=== PATIENT | female | born 2000 | race Caucasian/White ===

== ENCOUNTER 2023-06-19 10:06 | Outpatient (CLI) | payer OTHER, SELFPAY ==
[2023-06-19 10:46] LABS: Hematocrit 37.8 % (37.0-47.0); Hemoglobin 12.6 g/dL (12.0-15.0); Mean Corpuscular HGB Conc 33.3 g/dl (32-36); Mean Corpuscular Hemoglobin 30.5 pg (26-34); Mean Corpuscular Volume 91.5 fl (80-100); Mean Platelet Volume 9.4 fl (7.4-10.4); Platelet Count Result 220 k/mm3 (150-375); Red Blood Count 4.13 M/mm3 (4.2-5.4); White Blood Count 7.9 K/mm3 (4.5-10.0)
[2023-06-19 11:16] LABS: Alanine Aminotransferase 23 U/L (6-35); Albumin Level 4.6 g/dL (3.5-5.1); Alkaline Phosphatase 56 U/L (38-126); Anion Gap 12 mmol/L (8-16); Aspartate Amino Transferase 24 U/L (14-36); Bilirubin,Total 0.4 mg/dL (0.2-1.3); Blood Urea Nitrogen 9 mg/dL (7-17); CRP 0.9 mg/dL (<1.0); Calcium 9.6 mg/dL (8.4-10.2); Carbon Dioxide 23 mmol/L (22-30); Chloride 103 mmol/L (98-107); Estimated Glomerular Filt Rate > 60; Glucose 85 mg/dL (65-110); Potassium 4.3 mmol/L (3.4-5.0); Sodium 138 mmol/L (137-145)
[2023-06-19 11:47] LABS: Erythrocyte Sedimentation Rate 25 mm/hr (0-20)
[2023-06-19 11:54] LABS: Thyroid Stimulating Hormone Reflex 0.695 uIU/mL (0.465-4.68)
[2023-06-24 11:35] LABS: Immunoglobulin A 92 mg/dL (47-310); TTG IGA AB <1.0 U/mL (<15.0)
== END 2023-06-19 10:07 | disposition home or self-care (01) ==
LOC: ANHLAB 10:08
PROVIDERS: PCP Internal Medicine; Visit Provider Nurse Practitioner
DX: K58.0 Irritable bowel syndrome with diarrhea (principal)
CPT/HCPCS: 36415; 80053; 82784; 84443; 85027; 85652; 86140; 86364

== ENCOUNTER 2023-06-20 09:15 | Outpatient (CLI) | payer OTHER, SELFPAY ==
[2023-06-29 01:21] LABS: Calprotectin, Stool <5 mcg/g; Pancreatic Elastase, Stool >500 mcg/g
== END 2023-06-20 09:16 | disposition home or self-care (01) ==
PROVIDERS: PCP Internal Medicine; Visit Provider Nurse Practitioner
DX: K58.0 Irritable bowel syndrome with diarrhea (principal)
CPT/HCPCS: 82653; 83993

== ENCOUNTER 2025-02-03 11:11 | Outpatient (CLI) | payer OTHER, SELFPAY ==
--- OUTSIDE RECORDS SUMMARY | 2025-02-03 11:16 | XMS_ITS | Clinical Summary ---
Author Organization [facility] assistant Address [address] [place] [address] Care Team Providers Care Purchasing Engineer Name Role Phone Unavailable Primary Care Provider Unavailabl e Source Comments [facility] assistant,non-owned Affiliates and Associated Physician Practices is amultiple site organization consisting of ambulatory clinics and hospital sitesin [place], [place], [place] and [place]. This disclosure is being madepursuant to the Care Everywhere program and may not contain all information available regarding this patient. Last updated 18.[facility] assistant Allergies Active Allergy Reactions Criticality Noted Date Comments Augmentin Diarrhea 08/04/2018 Medications * Be aware that medications may not be up to date on this document. Alwaysverify current medications with the patient. No known medications Social History Tobacco Use Types Packs/Day Years Used Date Smoking Tobacco: Never Smokeless Tobacco: Never Comments No Sex and Gender Information Value Date Recorded Sex Assigned at Not on file Legal Sex Female 10:59 AM RN [facility] Gender Identity Not on file Sexual Orientation Not on file Last Filed Vital Signs Vital Sign Reading Time Taken Comments Blood Pressure 104/80 08/04/2018 11:42 AM RN [facility] Pulse 91 08/04/2018 11:42 AM RN [facility] Temperature 36.9 C (98.4 F) 08/04/2018 11:42 AM RN [facility] Respiratory Rate - - Oxygen Saturation 99% 08/04/2018 11:42 AM RN [facility] Inhaled Oxygen Concentration - - Weight 54 kg (119 lb) 08/04/2018 11:42 AM RN [facility] Height 149.9 cm (4' 11) 08/04/2018 11:42 AM RN [facility] Body Mass Index 24.04 08/04/2018 11:42 AM RN [facility] Plan of Treatment Health Maintenance Due Date Last Done Comments HIV SCREENING 2017 HPV VACCINE (1 - 3-dose series) 2017 CHLAMYDIA/GONORRHEA SCREENING 2018 MENINGOCOCCAL (Group B) VACC INE SHARED DECISION-MAKING (1 of 2 - Standard) 2018 HEPATITIS C SCREENING 07/08/2020 DTAP/TDAP/TD VACCINES (1 - Tdap) 2021 HEPATITIS B VACCINE (1 of 3 - 19+ 3-dose series) 2021 COVID-19 VACCINE (1 - 2023-2 5 season) 2024 DEPRESSION SCREENING 08/04/2024 INFLUENZA VACCINE (Season Ended) 2025 ZOSTER VACCINE (1 of 2) 2052 HIB VACCINE Aged Out No longer eligi ble based on patient's age to complete this topic MENINGOCOCCAL GROUPS A/C/Y/W VACCINE Aged Out No longer eligible b ased on patient's age to complete this topic PNEUMOCOCCAL VACCINE Aged Out No long er eligible based on patient's age to complete this topic Insurance [facility]
--- OUTSIDE RECORDS SUMMARY | 2025-02-03 11:16 | XMS_ITS | Data Portability ---
Author Organization [place] [facility], Main Office Address [address] [place] [address] Care Team Providers Care Chemist Internship Name Role Phone ALEKS ESCALANTE Primary Care Provider [phone] Assessment Encounter Date Assessment Date Assessment LastModified by Organization Details LastModified Time 12/05/2022 12/05/2022 Finish clindamycin Continue to follow-up for ADD and anxiety with her psychiatry See me yearly and LEs she gets sick [email or web address] Not available 12/07/2022 16:45:19 Plan of Treatment Reminders Order Date Submit Date Provider Last Modified By Organization Details Last Modified Time Details Appointments None recorded. Lab None recorded. Referral None recorded. Procedures None recorded. Surgeries tonsillecto my (SURG) 2023 024 [email or web address] Not available 14:22:46 Imaging None recorded. Medication Orders None recorded. Patient TargetsNo targets recorded. Patient Instructions Encounter Date Encounter Id Patient Instructions Last Modified By Organization Details Last Modified Time 07/26/2024 [id number] Discussed that she is experiencing bilateral ear pain due to referred pain as the tonsils and ears share nerve pathways. Advised to continue heat as needed. Advised taking 500 to a 1000 mg of Tylenol every 6 hours and or taking ibuprofen 6-800 mg every 4-6 hours for symptom management. [email or web address] Not available 07/26/2024 12:47:39 Reason for Referral None Reported. Results Created Date Observation Date Name Description Value Unit Range Abnormal Flag Note LastModifiedBy Organization Detail LastModifiedTime 07/19/20 24 07/23/2024 PATHO LOGY SERVI CE pathserv SEE COMMEN T See separ ate patho logy repor t. Not Available [facility] (Lab) [address] [place], [address], 07/23/2024 15:29:47 Result Notes None recorded. Problems Name Problem SNOMED Code Status Onset Date Resolution Date Notes Provider Name and Address Organization Details Recorded Time Acute pharyngitis 737417884 Active 2022 Aleks Escalante MD [address] [facility], [address], [address] , [facility] [facility] 16:45:24 Diarrhea 78085454 Active 2022 Bianka Marroquin RN [facility], [facility] 17:27:39 Chronic tonsillitis 61298348 Active 2023 Donnie Barrios MD [address] [facility], [address], [address] , [facility] [facility] 15:44:01 Postoperative pain 339616705 Active 2023 Donnie Barrios MD [address] [facility], [address], [address] , [facility] [facility] 17:11:37 Problem Notes None recorded. Procedures Surgical History Date Name Laterality Status Provider Name and Address Organization Details Recorded Time 07/19/20 24 TONSILLECTOMY (SURG) completed Zee Carlin RN [place] [facility] 07/23/2024 09:02:56 09/18/19 19 [place] Teeth completed Not Available [facility] 023 18:51:20 Imaging Results None recorded. Procedure Notes None recorded. Medical Equipment None Reported. Allergies No known drug allergies Medications Name Sig Start Date Stop Date Status Note LastModified by Organization Details LastModified Time amoxicill in 500 mg capsule 11/26 completed Not Available Not Available Not Available azithromy jass 250 mg tablet 11/28 completed Not Available Not Available Not Available hydrocodo ne 5 mg-acetam inophen 325 mg tablet 11/26 completed Not Available Not Available Not Available tretinoin 0.025 % topical cream 12/05 completed Not Available Not Available Not Available prednison e 20 mg tablet TAKE 2 TABLETS BY MOUTH EVERY DAY FOR 5 DAYS 04/25 completed Not Available Not Available Not Available amoxicill in 875 mg tablet 11/26 completed Not Available Not Available Not Available clindamyc in 1 % topical gel 12/05 completed Not Available Not Available Not Available benzonata te 100 mg capsule 11/28 completed Not Available Not Available Not Available polymyxin B sulfate 10,000 unit-trim ethoprim 1 mg/mL eye drops 04/25 completed Not Available Not Available Not Available amoxicill in 875 mg-potass ium clavulana te 125 mg tablet TAKE 1 TABLET BY MOUTH EVERY 12 HOURS FOR 10 DAYS 04/25 completed Not Available Not Available Not Available Lessina 0.1 mg-20 mcg tablet TAKE 1 TABLET BY MOUTH DAILY 12/05 completed Not Available Not Available Not Available escitalop conrad 20 mg tablet Take 1 tablet every day by oral route. 03/29 completed psych- alan Not Available Not Available Not Available moxifloxa jass 0.5 % eye drops 12/05 completed Not Available Not Available Not Available June FE 08/23 (28) 1 mg-20 mcg (21)/75 mg (7) tablet TAKE 1 TABLET BY MOUTH EVERY DAY 03/29 completed Not Available Not Available Not Available hydrocodo ne 7.5 mg-acetam inophen 325 mg/15 mL oral solution Take 15 mL every 4 hours by oral route. 07/26 completed Not Available Not Available Not Available chlorhexi dine gluconate 0.12 % mouthwash 11/26 completed Not Available Not Available Not Available hyoscyami ne sulfate active Not Available Not Available Not Available NuvaRing active Not Available Not Avai lable Not Available drospiren one 3 mg-ethiny l estradiol 0.02 mg tablet Take 1 tablet every day by oral route. 04/25 completed Not Available Not Available Not Available Xulane 150 mcg-35 mcg/24 hr transderm al patch Apply 1 patch every week by transder mal route. 03/10 completed Not Available Not Available Not Available Qelbree 200 mg capsule,e xtended release Take 1 capsule every day by oral route. 03/29 completed sample from psych- alan Not Available Not Available Not Available Vitals Date Recorded Body height Body mass index (BMI) Body mass index (BMI) [Percentile] Per age and sex Body weight Body temperature Heart rate Oxygen saturation Oxygen saturation in Arterial blood by Pulse oximetry Systolic And Diastolic Provider Name and Address Organization Details Last Updated DateTime 149.86 cm 25.9 kg/m2 82 % 26837.8 2 g 97.6 [degF] 103 /min 97 % 97 % 112/70 mm[Hg] Marissa Strickland RN [facility] 15:44:59 Date Recorded Body mass index (BMI) Body height Body weight Systolic And Diastolic Provider Name and Address Organization Details Last Updated DateTime 12/25/2020 19.7 kg/m2 154.94 cm 71406.61 g 102/70 mm[Hg] Not Available [facility] 10/02/2022 18:51:31 Date Recorded Body height Body mass index (BMI) Body weight Body temperature Provider Name and Address Organization Details Last Updated DateTime 03/29/2024 152.4 cm 26.1 kg/m2 28974.66 g 99.2 [degF] LIZA [place] [facility] 03/29/2024 15:36:46 Date Recorded Body mass index (BMI) Body height Body weight Systolic And Diastolic Provider Name and Address Organization Details Last Updated DateTime 04/25/2021 21 kg/m2 154.94 cm 07938.75 g 98/72 mm[Hg] Not Available [facility] 10/02/2022 18:51:31 Date Recorded Body height Body mass index (BMI) Body weight Body temperature Provider Name and Address Organization Details Last Updated DateTime 07/26/2024 152.4 cm 24.6 kg/m2 85351.64 g 97.6 [degF] Zee Carlin RN [place] [employer] [employer] 07/26/2024 12:29:27 Social History Question Answer Notes LastModified by Organizat ion Details LastModified Time Tobacco Smoking Status Never Smoker Not Available [facility] 10/02/2022 18:51:20 What Is Your Level Of Caffeine Consumption? Occasional [id number] Information not available 10/02/2022 In The 14 Days Before Symptom Onset, Have You Had Close Contact With A Laboratory-confir med COVID-19 While That Case Was Ill? No [email or web address] Information not available 12/05/2022 In The 14 Days Before Symptom Onset, Have You Had Close Contact With A Person Who Is Under Investigation For COVID-19 While That Person Was Ill? No [email or web address] Information not available 12/05/2022 What Type Of Diet Are You Following? REGULAR [email or web address] Information not available 12/05/2022 Which Illicit Or Recreational Drugs Have You Used? No [id number] Information not available 10/02/2022 What Is The Highest Grade Or Level Of School You Have Completed Or The Highest Degree You Have Received? [id number] Information not available 12/05/2022 Have There Been Any Changes To Your Family Or Social Situation? No [email or web address] Information no t available 12/05/2022 Do You Use Insect Repellent Routinely? No [email or web address] Information not available 12/05/2022 Where Do You Live? SingleLevelHouse [email or web address] Information not available 12/05/2022 What Was The Date Of Your Most Recent Tobacco Screening? 12/05/2022 [email or web address] Information not available 12/05/2022 Do You Have Any Pets? Yes [email or web address] Information not available 12/05/2022 What Is Your Relationship Status? Single [email or web address] Information not available 12/05/2022 Do You Use Your Seat Belt Or Car Seat Routinely? Yes [email or web address] Information not available 12/05/2022 Are You Sexually Active? No [email or web address] Information not available 12/05/2022 Do You Have Smoke And Carbon Monoxide Detectors In Your Home? Yes [email or web address] Information not available 12/05/2022 Are You Passively Exposed To Smoke? No [email or web address] Information no t available 12/05/2022 Are There Any Smokers In Your House? No [email or web address] Information not available 12/05/2022 How Much Tobacco Do You Smoke? No [id number] Information not available 10/02/2022 Do You Use Sunscreen Routinely? Yes [email or web address] Information not available 12/05/2022 Have You Recently Traveled Abroad? No [email or web address] Information not available 12/05/2022 Do You Have Any Dietary Restrictions? No [email or web address] Information not available 12/05/2022 Sex: Unknown Functional Status Question Answer Note LastModified by Organizat ion Details LastModified Time Do you use any illicit or recreational drugs? No Information not available 12/05/2022 What is your level of alcohol consumption? Occasional [email or web address] Information not available 12/05/2022 Do you or have you ever used smokeless tobacco? Never used smokeless tobacco [id number] Information not available 10/02/2022 Are you currently employed? 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 Never used electronic cigarettes [id number] Information not available 10/02/2022 What is your exercise level? Occasional [id number] Information not available 10/02/2022 Mental Status Question Answer Note LastModified by Organization D etails LastModified Time Do you feel stressed (tense, restless, nervous, or anxious, or unable to sleep at night)? [id number] [email or web address] Information not available 12/05/2022 Family History Relationship Description Onset Age of this Age Resolved Age Notes LastModified by Organization Details LastModified Time Father Malignant lymphoma [id number] Not available 10/02/2022 18:51:21 Notes:NO ENT Medical History Condition Response NERVE DISEASE N BLINDNESS N RHEUMATIC FEVER N KIDNEY STONES N BLADDER PROBLEMS N MRSA N OTHER # 1 N POLIO N LUNG DISEASE/DISORDER N HISTORY OF DRUG ABUSE N RADIATION / CHEMOTHERAPY N COPD N Other # 2 N BLOOD DISEASES N EAR OR HEARING PROBLEMS N MUMPS N SHINGLES N BOWEL PROBLEMS N DEPRESSION (INCLUDING POST ) N FAILED BACK SYNDROME N STROKE/TIA N ULCERS N BENIGN PROSTATIC HYPERPLASIA N MEASLES N HYPOTENSION N MYOCARDIAL INFARCTION N OBESITY N GERD/NAUSEA N ANEURYSM N URINARY/BLADDER/KIDNEY PROBLEMS N CORONARY ARTERY DISEASE (CAD) N Do you have Advance directive? N ADDICTION CONCERNS N Impotence N ENDOMETRIOSIS N USE OF BLOOD THINNERS N SKIN PROBLEMS N GASTROINTESTINAL DISORDER N PERIPHERAL VASCULAR DISEASE N MUSCLE,JOINT OR BONE PROBLEMS N GASTROINTESTINAL BLEEDING N BLOOD CLOTS N ASTHMA N CATARACTS N Abdominal Pain N ERECTILE DYSFUNCTION N ARTERIAL INSUFFICIENCY N VARICOSITIES N GI PROBLEMS N Low Testosterone N INFERTILITY N AIDS/HIV N CHEMOTHERAPY / RADIATION N LIVER DISEASE N MALE HYPOGONADISM N HYPERTENSION N Deficiency N TOURETTE'S N ANXIETY DISORDER N BLOOD TRANSFUSION N ANEMIA/BLOOD DISORDER N CHRONIC EAR INFECTIONS N TUBERCULOSIS N GLAUCOMA N FOOT PROBLEM N DIVERTICULITIS N SLEEP APNEA N CHICKENPOX N ALLERGIES/HAYFEVER N BACK INJECTIONS N INFECTIOUS DISEASE N PROSTATE N HEART ARRHYTHMIA N ESRD N INSOMNIA N HIGH CHOLESTEROL / HYPERLIPIDEMIA N EYE PROBLEMS N HYPERTHYROIDISM N PVD N EDEMA N CHRONIC PAIN SYNDROME N HYPOTHYROIDISM N CONSTIPATION N CAROTID BLOCKAGE N BACK / NECK PROBLEMS N HAVE YOU BEEN HOSPITALIZED OR SEEN IN [facility] IN THE PAST YEAR ? N ATHEROSCLEROSIS N BREAST PROBLEMS N DIALYSIS N POLYCYSTIC OVARIES N ECZEMA N OSTEOPOROSIS N ARTHRITIS N NO SIGNIFICANT PAST MEDICAL HISTORY N APPENDICITIS N DIABETES, TYPE N BAD TEETH N VON WILLIBRAND'S DISEASE N ENT N HEARTBURN / REFLUX N GI N AUTISM SPECTRUM DISORDER (ASD) N POST LAMINECTOMY SYNDROME N HEPATITIS / LIVER DISEASE N GOUT N SLEEP DISORDER N ALZHEIMER'S DISEASE N Brain Problems N DEMENTIA N HERPES N SEIZURES/EPILEPSY N HEADACHES/MIGRAINES N VASCULAR DISEASE N PACEMAKER N DIZZINESS N HEART DISEASE/HEART PROBLEMS N KIDNEY DISEASE N MULTIPLE SCLEROSIS N NEUROPSYCHOLOGICAL N CANCER: SPECIFY N CARDIAC ARRHYTHMIA N ATRIAL FIBRILLATION N Gall Stones N PULMONARY EMBOLISM N AUTOIMMUNE DISEASE N Gynecological History Statement/Question Response Date of Last Pap Smear Current Control Method BCPs Age at Menarche 13 Most Recent Mammogram Date of LMP 04/12/2021 Obstetrics History GPAL:G 0 P 0 0 0 0 Immunizations Vaccine Type Date Status Note Provider Troy huerta and Address Organization Details Recorded Time SARS-COV-2 (COVID-19) vaccine, UNSPECIFIED completed Not Available [facility] 10/02/2022 18:52:37 Past Encounters Encounter ID Performer Location Encounter Start Date Encounter Closed Date Diagnosis/Indication Diagnosis SNOMED-CT Code Diagnosis ICD10 Code Diagnosis Note [id number] [facility] _ATHENA_M IGRATION_ DEFAULT_1 _1 , 12/25/2020 00:00:00 12/25/2020 18:13:52 [id number] S_[facility] _ATHENA_M IGRATION_ DEFAULT_1 _1 , 04/25/2021 00:00:00 04/25/2021 18:00:07 [id number] Aleks Escalante MD [facility] [place] [address] [facility] , [facility] [place] [address] 12/05/2022 15:31:08 12/05/2022 16:38:05 Acute pharyngitis 035509698 J02.9 [id number] Donnie Barrios MD [facility] [place] [address] [place] [address] 03/29/2024 14:56:37 03/29/2024 17:08:57 Chronic tonsillitis 51472253 J35.01 [id number] Donnie Barrios MD [facility] [place] [address] [place] [address] 07/26/2024 12:19:09 07/26/2024 12:48:14 Postoperative visit [id number] Z48.89 07/19/2024 postoperat ledy from a tonsillect aj. Patient is healing appropriat kelly. Follow-up as needed. Health Concerns Section Related Observation LastModified by Organization Detai ls LastModified Time None Recorded Concern Status LastModified by Organization Details LastModified Time None Recorded Advance Directives Directive None Recorded Payers Insurance Date Sequence Insurance Name Policy Number Policy Yan Covered Member ID Yan Member ID Guarantor Name 07/29/2024 1 [facility] [id number] Marnie Rai [id number] Alisha Rai 03/26/2024 [facility] Alisha Rai SELF SELF Alisha Rai Notes Date Note Type Note Provider Name and Address Organization Details Recorded Time 12/05/2022 text/html 22-year-old went to urgent care because she had a sore throat 6 weeks ago given amoxicillin no better then she went to another urgent care was given stress steroids maybe a little bit better back to urgent care for 3rd time given clindamycin for sore throat and now that seems to be helping. How she is none surgery wisdom teethMedications Lexapro 20 mg and she takes medicine for ADD and she is on currently clindamycin.One drink of alcohol a week does not smoke does not vape single sexually active student in [employer] Aleks Escalante MD [address] [place] [address], [facility] [address], [place], [address], [facility] [employer] 12/07/2022 16:45:44 03/29/2024 text/html This patient has numerous recurrent tonsil stones this has been going on since she developed tonsillitis in January. Donnie Barrios MD [address], [facility] [address], [place], [address], [facility] 03/29/2024 15:44:34 07/26/2024 text/html This patient pre sents to the office for a postoperative visit following a tonsillectomy that was completed on 07/19/2024. She reports overall minimal pain from her surgical site. She does note bilateral otalgia that began on 07/22/2024. States that she has been using ice, heat, Motrin, and Tylenol. She does note that she is only taking 1 Tylenol and or 1 Motrin per day. Denies any other complaints. CHAPIS Ny [address], [facility] [address], [place], [address], [facility] [employer] 07/26/2024 12:47:44 OBGyn Episode No OBEpisode recorded.
[2025-02-03 11:48] LABS: Alanine Aminotransferase 17 U/L (6-35); Albumin Level 4.9 g/dL (3.5-5.1); Alkaline Phosphatase 58 U/L (38-126); Anion Gap 13 mmol/L (4-12); Aspartate Amino Transferase 23 U/L (14-36); Bilirubin,Total 0.9 mg/dL (0.2-1.3); Blood Urea Nitrogen 13 mg/dL (7-17); Calcium 9.6 mg/dL (8.4-10.2); Carbon Dioxide 22 mmol/L (22-30); Chloride 103 mmol/L (98-107); Cholesterol 212 mg/dL (0-200); Estimated Glomerular Filt Rate > 60; Glucose 137 mg/dL (65-110); HDL Direct 64 mg/dL; Potassium 3.9 mmol/L (3.4-5.0); Sodium 138 mmol/L (137-145); Total Protein 8.0 g/dL (6.3-8.2); Triglycerides 73 mg/dL (<150)
[2025-02-03 12:05] LABS: Free T4 Free Thyroxine 1.14 ng/dL (0.78-2.19)
[2025-02-03 12:20] LABS: Thyroid Stimulating Hormone 0.344 uIU/mL (0.465-4.680); Total Triiodothyronine (T3) 1.13 NG/ML (0.82-1.58)
== END 2025-02-03 11:12 | disposition home or self-care (01) ==
LOC: ANHLAB 11:14
PROVIDERS: PCP Internal Medicine; Visit Provider Internal Medicine
DX: F41.9 Anxiety disorder, unspecified (principal); Z13.6 Encounter for screening for cardiovascular disorders
CPT/HCPCS: 36415; 80053; 80061; 84439; 84443; 84480